=== PATIENT | male | born 1935 | race Caucasian/White ===

== ENCOUNTER 2024-10-15 07:12 | Day surgery (SDC) | payer MEDICARE ==
[2024-10-15] VITALS (8 sets, daily range): BP systolic 149–168; BP diastolic 74–100; PULSE 67–78
[~2024-10-15 07:12] MED LIST: ASPI-1450 PO; ATOR40TA71 PO; CLOP75TA60 PO; DAPA5TAB PO; ESCI-8 PO; FURO20TA5 PO; GEMF-77 PO; ISOS30TA92 PO; LOSA-382 PO; METO25 PO; NITR0.4T52 SL; RANO500T27 PO; XALA2.5OS OU
[2024-10-15] MEDS ORDERED: LIDOCAINE/PF 1% 30 ML VIAL ONE (07:55)
[2024-10-15] MEDS ORDERED: IOHEXOL 300 MG/ML 100 ML VIAL ONE (07:55)
[2024-10-15] MEDS ORDERED: SODIUM BICARBONATE 50 MEQ/50 ML VIAL ONE (07:55)
[2024-10-15] MEDS ORDERED: VERAPAMIL HCL 2.5 MG/ML 2 ML VIAL ONE (07:56)
[2024-10-15] MEDS ORDERED: HEPARIN SODIUM 1000 UNITS/NS 1,000 ML ONE (07:56)
[2024-10-15] MEDS ORDERED: NITROGLYCERIN 50 MG/D5% WATER 250 ML ONE (07:56)
[2024-10-15 08:00] LABS: EOSINOPHILS % (AUTO) 4.1 % (1.0-6.0); HEMATOCRIT 30.8 % (41-53); HEMOGLOBIN 9.9 g/dL (13.5-17.5); LYMPHOCYTES # (AUTO) 1.7 K/uL (1.0-4.8); LYMPHOCYTES % (AUTO) 26.1 % (22.0-44.0); MEAN CORPUSCULAR HGB CONC 32.2 G/dL (31.0-37.0); MEAN CORPUSCULAR VOLUME 81 fL (80-100); MONOCYTES # (AUTO) 0.6 K/uL (0.1-1.0); MONOCYTES % (AUTO) 9.9 % (2.0-9.0); NEUTROPHILS # (AUTO) 3.8 K/uL (1.8-7.7); NEUTROPHILS % (AUTO) 58.9 % (40.0-70.0); PLATELET COUNT (AUTO) 241 K/uL (150-450); RED BLOOD CELL COUNT(AUTO) 3.81 MIL/uL (4.50-5.90); RED CELL DISTRIBUTION WIDTH 15.8 % (11.5-14.5); WHITE BLOOD COUNT (AUTO) 6.5 K/uL (4.5-11.0)
[2024-10-15 08:13] LABS: CALCIUM, TOTAL 9.2 mg/dL (8.8-10.5); CREATININE 1.69 mg/dL (0.60-1.30); POTASSIUM 4.3 mmol/L (3.5-5.1)
[2024-10-15 08:14] LABS: PROTHROMBIN TIME 11.2 SEC (9.4-11.6)
[2024-10-15] MEDS ORDERED: SODIUM CHLORIDE 0.9% 1,000 ML ONE (08:16)
[2024-10-15 08:19] LABS: ALBUMIN 3.2 g/dL (3.4-5.0); BILIRUBIN,TOTAL 0.4 mg/dL (0.1-1.0); TOTAL PROTEIN, SERUM 7.1 g/dL (6.4-8.2)
[2024-10-15] MEDS ORDERED: METF-1185 PO (08:37)
[2024-10-15 08:45] LABS: GLUCOMETER DEV NAME(LOC) SDS.; GLUCOSE,POINT OF CARE 110 MG/DL (70-110)
[2024-10-15] MEDS: SODIUM CHLORIDE 0.9% 1,000 ML IV ONE (08:57)
[2024-10-15] MEDS ORDERED: FentaNYL CITRATE PF 100 MCG/2 ML VIAL ONE (09:23)
[2024-10-15] MEDS ORDERED: MIDAZOLAM HCL 2 MG/2 ML VIAL ONE (09:23)
[2024-10-15] MEDS: VERAPAMIL HCL 2.5 MG/ML 2 ML VIAL IARTER ONE (10:11)
[2024-10-15] MEDS: IOHEXOL 300 MG/ML 100 ML VIAL IARTER ONE (10:12)
[2024-10-15] MEDS: HEPARIN SODIUM 2,000 UNITS in HEPARIN SODIUM 1000 UNITS/NS 1,000 ML IARTER ONE (10:12)
[2024-10-15] MEDS: NITROGLYCERIN/D5W 50 MG/250 ML IV BOTTLE IARTER ONE (10:13)
[2024-10-15] MEDS: FentaNYL CITRATE PF 100 MCG/2 ML VIAL IVP ONE (10:13)
[2024-10-15] MEDS: MIDAZOLAM HCL 2 MG/2 ML VIAL IVP ONE (10:13)
[2024-10-15] MEDS: LIDOCAINE 1% 30 ML/SOD BICARB 8.4% 4 ML SQ ONE (10:17)
[2024-10-15] MEDS: HEPARIN SODIUM,PORCINE 1,000 UNITS/ML 10 ML VIAL IVP ONE (10:22)
== END 2024-10-15 15:05 | disposition home or self-care (01) ==
LOC: CATHLAB 07:12
PROVIDERS: ATTEND Internal Medicine Cardiovascular Disease
DX: I25.110 Atherosclerotic heart disease of native coronary artery with unstable angina pectoris (principal); E78.5 Hyperlipidemia, unspecified; I25.10 Atherosclerotic heart disease of native coronary artery without angina pectoris; E11.9 Type 2 diabetes mellitus without complications; I10 Essential (primary) hypertension; Z79.01 Long term (current) use of anticoagulants; Z95.5 Presence of coronary angioplasty implant and graft; Z95.0 Presence of cardiac pacemaker; Z98.890 Other specified postprocedural states; Z20.822 Contact with and (suspected) exposure to COVID-19
CPT/HCPCS: 93458; 99152; 99153; 80053; 82962; 85025; 85610; 85730; 36415; 93005; C1760; J3010; J1644; J3490 ×4; J2250; J7030; Q9967